=== PATIENT | female | born 1985 | race Caucasian/White ===

== ENCOUNTER 2017-05-27 23:09 | Emergency (ER) | payer MEDICARE ==
[2017-05-27] MEDS ORDERED: ONDANSETRON 4 MG ODT TABLET SL ONE (23:29)
--- NOTE | 2017-05-27 23:34 | Emergency Department Record ---
History of Present Illness - General Chief Complaint: Abdominal Pain Stated Complaint: LOWER ABD PAIN Time Seen by Provider: 05/27/17 23:24 Source: Patient Mode of Arrival: EMS Limitations: No limitations - History of Present Illness Initial Comments: The patient is here due to having lower abdominal pain for 2 weeks. The pain is an aching crampy pain in the lower abdomen. She denies any dysuria, fever, chills, back pain, vomiting, or diarrhea but has had some nausea. She has been to [facility] twice for this problem in the last week, first a week ago and then this evening. She was discharged about 2 hours ago from the ER after she was seen again for the same AP. The patient states she was on Bactrim but was changed to Cipro. She has had a pelvic exam and pelvic US for this problem at [facility]. MD Complaint: Abdominal pain Onset/Timin -: Week(s) Location: Suprapubic Radiation: Back Migration to: No migration Quality: Sharp Consistency: Constant Improves With: Nothing Worsens With: Nothing Associated Symptoms: Nausea - Related Data LMP (females 10-50): other Home Medications Medication Instructions Recorded Confirmed Last Taken Acetaminop W/ Codeine 300/30Mg 1 tab PO Q6H PRN 05/27/17 05/27/17 Unknown [Tylenol #3] Bupropion HCl [Wellbutrin Xl] 150 mg PO BID 05/27/17 05/27/17 Unknown Previous Rx's Medication Instructions Recorded Doxycycline Monohydrate [Mondoxyne 100 mg PO BID #28 capsule 05/28/17 Nl] Metronidazole [Flagyl] 500 mg PO BID #28 tablet 05/28/17 Naproxen [Naprosyn] 250 mg PO BID #14 tablet 05/28/17 Allergies Allergy/AdvReac Type Severity Reaction Status Date / Time No Known Drug Allergies Allergy Verified 05/27/17 23:11 Travel Screening - Travel/Exposure Within Last 30 Days Have you traveled within the last 30 days?: No - Travel Symptoms Symptom Screening: None Review of Systems Constitutional: Denies: Chills, Fever Eyes: Denies: Eye discharge ENT: Denies: Congestion Respiratory: Denies: Cough, Dyspnea Past Medical History - SOCIAL HISTORY Smoking Status: Never smoker - RESPIRATORY Hx Respiratory Disorders: No - CARDIOVASCULAR Hx Cardio Disorders: No - NEURO Hx Neuro Disorders: No - GI Hx GI Disorders: No - Hx Genitourinary Disorders: No - ENDOCRINE Hx Endocrine Disorders: No - MUSCULOSKELETAL Hx Musculoskeletal Disorders: No - PSYCH Hx Psych Problems: Yes Hx Depression: Yes - HEMATOLOGY/ONCOLOGY Hx Hematology/Oncology Disorders: No Family Medical History Any Significant Family History?: Yes Hx Cancer: Grandparents Physical Exam - General General Appearance: Alert, Cooperative, No acute distress - Head Head exam: Atraumatic, Normocephalic, Normal inspection - Eye Eye exam: Normal appearance, PERRL - ENT Throat exam: Normal inspection. negative: Tonsillar erythema, Tonsillar exudate - Neck Neck exam: Normal inspection, Full ROM. negative: Tenderness - Respiratory Respiratory exam: Normal lung sounds bilaterally. negative: Respiratory distress - Cardiovascular Cardiovascular Exam: Regular rate, Normal rhythm, Normal heart sounds - GI/Abdominal GI/Abdominal exam: Soft, Tenderness (There is mild lower abdominal tenderness but the abdomen is soft with no guarding or rebound.). negative: Distended, Rebound, Rigid - Extremities Extremities exam: Normal inspection, Full ROM, Normal capillary refill. negative: Tenderness Course Vital Signs 05/27/17 23:22 Temperature 97.5 F L Pulse Rate [ 72 Pulse Ox Probe] Respiratory 16 Rate Blood Pressure 111/80 [Left Arm] Pulse Ox 99 - Reevaluation(s) Reevaluation #1: Further hx has been obtained. The patient has been to [facility] 4 times in the last 8 days for this same issue. She has had 2 pelvic exams, one on the and one on the th and has been treated with a gram of Rocephin and a gram of Zithromax each time. Additionally she had neg pelvic US's on those dates also. She has had normal lab work with each visit but did have Trich in her urine on 2 of the visits. The patient's GC and Chlamydia tests are all still pending per the lab at [facility]. 05/28/17 00:37 Reevaluation #2: The patient is doing better at this time but is still having mild lower AP. She denies any nausea, vomiting, or diarrhea. We did give her the first dose of Doxycycline and Flagyl here in the ED and the patient has an appointment with her PCP tomorrow at 10am. She appears very stable for discharge and will be placed on Naprosyn for pain. 05/28/17 01:42 Medical Decision Making - Data Complexity MDM Data: Labs Ordered and/or Reviewed, X-Ray Ordered and/or Reviewed - Lab Data Result diagrams: 05/27/17 23:47 05/27/17 23:47 - Radiology Data Radiology results: Report reviewed (Abd/ Pelvis CT: No acute findings.) Disposition Disposition: Discharge Clinical Impression: PID (acute pelvic inflammatory disease) Disposition: Home, Self-Care Condition: (1) Good Instructions: Pelvic Inflammatory Disease (ED) Additional Instructions: Please use the Naprosyn for pain and continue the Doxycycline and Flagyl as directed. Please stop the Cipro. Please see your PCP tomorrow as planned. Return to the ER for any increased pain, fever, or vomiting. Prescriptions: Doxycycline Monohydrate [Mondoxyne Nl] 100 mg PO BID #28 capsule Metronidazole [Flagyl] 500 mg PO BID #28 tablet Naproxen [Naprosyn] 250 mg PO BID #14 tablet Forms: Patient Portal Access Time of Disposition: 01:46 Quality - Quality Measures Quality Measures: N/A - Blood Pressure Screening View Details: Yes Does Patient Have Any of the Following: No Blood Pressure Classification: Normal BP Reading Systolic Measurement: 117 Diastolic Measurement: 76 Screening for High Blood Pressure: < Normal BP, F/U Not Required > [G8783]
[2017-05-28 00:03] LABS: BLOOD UREA NITROGEN 10 mg/dL (6-20); CREATININE 0.7 mg/dL (0.5-0.9); EST GLOMERULAR FILTRATION RATE > 60 mL/min; GLUCOSE,RANDOM 94 mg/dL (74-109)
[2017-05-28 00:19] LABS: BASO % 0.5 % (0-6); EOS % 1.8 % (0-6); GRAN % 63.2 % (47-80); HEMATOCRIT 40.5 % (35.0-47.0); HEMOGLOBIN 13.3 gm/dl (11.6-16.0); MEAN CELL VOLUME 87.1 fl (81-97); MEAN CORPUSCULAR HEMOGLOBIN 28.6 pg (27-33); MEAN CORPUSCULAR HGB CONC 32.8 g/dl (32-36); MEAN PLATELET VOLUME 10.8 fl (7.4-10.4); MONO % 10.5 % (0-9); PLATELET COUNT 187 K/uL (130-400); RED BLOOD COUNT 4.65 M/uL (3.80-5.40); RED CELL DISTRIBUTION WIDTH 13.7 % (11.5-14.5); WHITE BLOOD COUNT W/O DIFF 4.4 K/uL (4.2-12.2)
[2017-05-28 00:31] LABS: URINE APPEARANCE CLEAR; URINE BILIRUBIN NEGATIVE (NEGATIVE); URINE BLOOD NEGATIVE (NEGATIVE); URINE COLOR YELLOW; URINE GLUCOSE (UA) NEGATIVE (NEGATIVE); URINE KETONE NEGATIVE (NEGATIVE); URINE LEUKOCYTE ESTERASE SMALL (NEGATIVE); URINE NITRITE NEGATIVE (NEGATIVE); URINE PROTEIN NEGATIVE (NEGATIVE); URINE UROBILINOGEN 0.2 E.U./dL (0.20 - 1.00)
[2017-05-28 00:36] LABS: URINE BACTERIA FEW; URINE EPITHELIAL CELLS 36 - 50 (FEW); URINE RBC 0 - 2 (NONE SEEN); URINE WBC 0 - 2 (0-2/hpf)
[2017-05-28 00:37] LABS: HCG,QUALITATIVE URINE NEGATIVE (NEGATIVE)
[2017-05-28] MEDS ORDERED: KETOROLAC 30 MG/ML VIAL IM ONE (00:39)
[2017-05-28] MEDS ORDERED: DOXYCYCLINE HYCLATE 100 MG CAPSULE PO ONE (00:42)
[2017-05-28] MEDS ORDERED: METRONIDAZOLE 250 MG TABLET PO ONE (00:42)
--- NOTE | 2017-05-29 07:18 | CT SCAN REPORT ---
DATE: 05/28/2017 at 0117. EXAM: CT OF THE ABDOMEN AND PELVIS WITHOUT CONTRAST. HISTORY: Lower abdomen/pelvic pain for two weeks. TECHNIQUE: Thin-collimation helical CT examination of the abdomen and pelvis is performed without oral or intravenous contrast administration. Lack of oral and intravenous contrast utilization limits evaluation of the bowel and solid viscera respectively. COMPARISON: Pelvic ultrasound with transvaginal imaging dated 05/25/2017 from [facility]. FINDINGS: The lung bases are clear. No pleural or pericardial effusion. The heart is not enlarged. The liver, spleen, pancreas, adrenal glands, and kidneys are normal in appearance. The gallbladder is unremarkable. No biliary ductal dilatation is seen. No intra-abdominal nor retroperitoneal lymphadenopathy. The vasculature , to the extent visualized, is unremarkable. There is a well-circumscribed hypodense area within the left adnexa likely arising from the left ovary having a density of 14 Hounsfield units. This is consistent with a dominant follicle. No other evidence of pelvic mass nor lymphadenopathy. Trace free fluid is demonstrated in the cul de sac. This is nonspecific but likely physiologic. No dilatation or wall thickening of bowel. The appendix is visualized and is normal in appearance. No focal urinary bladder abnormality is seen; though evaluation is limited by lack of distension. No lytic or blastic bone lesion. There is subcutaneous fat stranding in the left gluteal region likely relating to hypodermic needle injection. IMPRESSION: 1. DOMINANT FOLLICLE SUGGESTED ARISING FROM THE LEFT OVARY MEASURING 2.0 CM IN MAXIMUM DIAMETER. TRACE FREE FLUID IN THE CUL DE SAC IS NONSPECIFIC, THOUGH LIKELY PHYSIOLOGIC. 2. NO DEFINITE CT EVIDENCE OF AN ACUTE INTRA-ABDOMINAL NOR INTRAPELVIC PROCESS. JOB NUMBER: [id number] [facility]
== END 2017-05-28 02:03 | disposition home or self-care (01) ==
LOC: ER 23:09
DX: N73.0 Acute parametritis and pelvic cellulitis (principal); R11.0 Nausea; R10.30 Lower abdominal pain, unspecified
CPT/HCPCS: 99283; 96372; 99284; 85025; 80048; 81001; 81025; 74176; J1885